=== PATIENT | male | born 1935 | race Caucasian/White ===

== ENCOUNTER 2019-04-06 22:29 | Emergency (ER) | payer OTHER ==
[~2019-04-06] VITALS: Ht 177.8 cm; Wt 93.4 kg
[2019-04-06 22:55] LABS: ABSOLUTE NEUTROPHILS 4.8 thou/uL (1.4-8.2); EOSINOPHILS 2.5 % (0.0-3.0); HEMATOCRIT 37.9 % (42.0-52.0); HEMOGLOBIN 12.8 gm/dL (14.0-18.0); LYMPHOCYTES 18.3 % (24.0-44.0); MCH 31.5 pg (26.0-34.0); MCHC 33.8 g/dL (28.0-37.0); MCV 93.2 fL (80.0-100.0); PLATELET COUNT 178 thou/uL (150-400); POLYS 69.2 % (36.0-66.0); RBC 4.07 mil/uL (4.50-6.00); RDW 14.8 % (10.5-14.5)
[2019-04-06 23:01] LABS: ANION GAP 8 mmol/L (7-16); BUN 20 mg/dL (7-18); CHLORIDE 102 mmol/L (98-107); CO2 27 mmol/L (21-32); CREATININE 1.5 mg/dL (0.7-1.3); GLUCOSE 134 mg/dL (74-106); POTASSIUM 3.8 mmol/L (3.5-5.1); SODIUM 137 mmol/L (136-145)
[2019-04-06 23:11] LABS: ALBUMIN 3.6 g/dL (3.4-5.0); LIPASE 202 U/L (73-393); SGOT 36 U/L (15-37); SGPT 46 U/L (30-65); TOTAL BILIRUBIN 0.7 mg/dL (<0.1-1.0); TOTAL PROTEIN 7.2 g/dL (6.4-8.2); TROPONIN-I <0.06 ng/mL (<0.06)
[2019-04-06] MEDS ORDERED: ONDANSETRON ODT8 MG PO (23:57)
[2019-04-07 00:51] VITALS: BP 100/37
--- NOTE | 2019-04-07 10:32 | EKG ---
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1935 Requested By: Jeramie Christie Order Number: [id number] MD: Rohan Jewell Measurements Intervals [place] Rate: 70 P: MT: 168 QRS: -87 QRSD: 226 T: 76 QT: 510 QTc: 551 Interpretive Statements A-V dual-paced rhythm with some inhibition No further analysis attempted due to paced rhythm Baseline wander in lead(s) III No previous ECG available for comparison Electronically Signed On 04-07-2019 10:32:06 CDT by Rohan Jewell [email or web address] ��������������������������������������������� <ELECTRONICALLY SIGNED> ���������������������������������������� By: Rohan Jewell MD, [facility] ��������������������������������������������� 04/07/19 1032 50 50 Rohan Jewell MD, [facility] /EPI
== END 2019-04-07 00:52 | disposition home or self-care (01) ==
LOC: ER 22:29
PROVIDERS: Emergency Medicine
DX: R11.2 Nausea with vomiting, unspecified (principal); I13.0 Hypertensive heart and chronic kidney disease with heart failure and stage 1 through stage 4 chronic kidney disease, or unspecified chronic kidney disease; E11.22 Type 2 diabetes mellitus with diabetic chronic kidney disease; N18.9 Chronic kidney disease, unspecified; I50.9 Heart failure, unspecified; E78.5 Hyperlipidemia, unspecified; Z95.0 Presence of cardiac pacemaker; Z88.8 Allergy status to other drugs, medicaments and biological substances